=== PATIENT | female | born 1945 | race Caucasian/White ===

== ENCOUNTER 2019-07-02 19:17 | Emergency (ER) | payer MEDICARE, OTHER, SELFPAY ==
[~2019-07-02] VITALS: Ht 154.9 cm; Wt 54.5 kg
[2019-07-02] MEDS ORDERED: ADACEL/BOOSTRIX VACCINE (DIPHTH/PERTUSS/ACELL/TETANUS)0.5ML SYR (90715) IM ONE (20:00)
--- NOTE | 2019-07-02 20:35 | REPVR ---
PROCEDURE INFORMATION: Exam: CT Cervical Spine Without Contrast Exam date and time: 07/02/2019 7:29 PM Age: 74 years old Clinical history: Injury or trauma; Fall; Initial encounter; Blunt trauma TECHNIQUE: Imaging protocol: Computed tomography images of the cervical spine without contrast. Radiation optimization: All CT scans at this facility use at least one of these dose optimization techniques: automated exposure control; mA and/or kV adjustment per patient size (includes targeted exams where dose is matched to clinical indication); or iterative reconstruction. COMPARISON: No relevant prior studies available. FINDINGS: Vertebrae: No acute cervical spine fracture. The facet alignment is preserved bilaterally. The occipital condyles and C1-C2 articulations appear intact. The cervical lordosis is straightened. Mild anterolisthesis of C3 on C4. Mild retrolisthesis of the left C1 lateral mass on C2. There is slight anterolisthesis of the right C1 lateral mass on C2. Hypertrophic degenerative changes are identified at the junction of the anterior C1 arch and dens process. A small nonspecific sclerotic lesion is identified within the T2 spinous process. Discs/Spinal canal/Neural foramina: Spondylosis is visualized at multiple cervical levels. Facet arthropathy is identified at multiple cervical levels. Soft tissues: No significant prevertebral soft tissue swelling. Thyroid: There is a 9-10 mm nodule within the right thyroid lobe. Lungs: No pneumothorax, as visualized. Vasculature: Mild atherosclerotic changes. IMPRESSION: 1. No acute cervical spine fracture. 2. The cervical lordosis is straightened. 3. Mild anterolisthesis of C3 on C4. Mild retrolisthesis of the left C1 lateral mass on C2. There is slight anterolisthesis of the right C1 lateral mass on C2. 4. Spondylosis is visualized at multiple cervical levels. 5. There is a 9-10 mm nodule within the right thyroid lobe. COMMENT: In patients aged 35 years and older with an incidental thyroid nodule equal to or greater than 1.[address], MRI or extrathyroidal US, further evaluation with dedicated thyroid US is recommended for patients with normal life expectancy and without comorbidities. For smaller nodules without suspicious features, no further evaluation or follow up is recommended. Electronically signed by: Trung Todd On 07/02/2019 20:32:45 PM
--- NOTE | 2019-07-02 20:37 | REPVR ---
PROCEDURE INFORMATION: Exam: CT Head Without Contrast Exam date and time: 07/02/2019 7:29 PM Age: 74 years old Clinical history: Injury or trauma; Fall; Initial encounter; Concussion / head injury TECHNIQUE: Imaging protocol: Computed tomography of the head without contrast. Radiation optimization: All CT scans at this facility use at least one of these dose optimization techniques: automated exposure control; mA and/or kV adjustment per patient size (includes targeted exams where dose is matched to clinical indication); or iterative reconstruction. COMPARISON: No relevant prior studies available. FINDINGS: Brain: There is an increase in density along the posterior aspect of the falx, concerning for a small amount of subdural hemorrhage. This has a thickness of 2-3 mm. This can be contributed by volume averaging. Hypodense lacunar infarcts are identified within the bilateral basal ganglia, which appear to be subacute or chronic. There are scattered foci of white matter hypodensity, likely representing small vessel ischemic disease in a patient this age. The acuity of the white matter disease is indeterminate. The white-stevens differentiation is otherwise preserved demonstrating no acute territorial type infarct. Midline shift: There is no midline shift. Ventricles: There is mild prominence of the ventricles and sulci, compatible with atrophy. Bones/joints: The calvarium demonstrates no evidence for a depressed fracture. Sinuses: Visualized sinuses are unremarkable. No fluid levels. Mastoid air cells: No mastoid effusion. Soft tissues: Soft tissue swelling/hematoma of the right parietal scalp superiorly. Vasculature: Intracranial atherosclerosis visualized. IMPRESSION: 1. There is an increase in density along the posterior aspect of the falx, concerning for a small amount of subdural hemorrhage. A follow-up head CT in 12-24 hours is recommended. 2. Soft tissue swelling/hematoma of the right parietal scalp superiorly. 3. Hypodense lacunar infarcts are identified within the bilateral basal ganglia, which appear to be subacute or chronic. If there is a clinical concern for acute ischemic change, MRI is suggested. 4. There are scattered foci of white matter hypodensity, likely representing small vessel ischemic disease in a patient this age. 5. Mild atrophy. Electronically signed by: Trung Todd On 07/02/2019 20:37:20 PM
--- NOTE | 2019-07-03 02:40 | REPVR ---
PROCEDURE INFORMATION: Exam: CT Head Without Contrast Exam date and time: 07/03/2019 2:19 AM Age: 74 years old Clinical history: Pain; Headache; Additional info: [facility] TECHNIQUE: Imaging protocol: Computed tomography of the head without contrast. Radiation optimization: All CT scans at this facility use at least one of these dose optimization techniques: automated exposure control; mA and/or kV adjustment per patient size (includes targeted exams where dose is matched to clinical indication); or iterative reconstruction. COMPARISON: CT Head without contrast 07/02/2019 7:27 PM FINDINGS: Brain: There is no progression of the minimal posterior parafalcine hyperdensity/hemorrhage compared to the prior study. No new hemorrhage identified. Small subacute or chronic lacunar infarcts within the bilateral basal ganglia. There are scattered foci of white matter hypodensity, likely representing small vessel ischemic disease in a patient this age. The acuity of the white matter disease is indeterminate. The white-tsevens differentiation is preserved demonstrating no acute territorial type infarct. Midline shift: There is no midline shift. Ventricles: There is mild prominence of the ventricles and sulci, compatible with atrophy. Bones/joints: The calvarium demonstrates no evidence for a depressed fracture. Sinuses: Visualized sinuses are unremarkable. No fluid levels. Mastoid air cells: No mastoid effusion. Soft tissues: Soft tissue swelling/hematoma of the right parietal scalp superiorly. Vasculature: Intracranial atherosclerosis visualized. IMPRESSION: 1. There is no progression of the minimal posterior parafalcine hyperdensity/hemorrhage compared to the prior study. No new hemorrhage identified. 2. Soft tissue swelling/hematoma of the right parietal scalp superiorly. 3. Small subacute or chronic lacunar infarcts within the bilateral basal ganglia. 4. There are scattered foci of white matter hypodensity, likely representing small vessel ischemic disease in a patient this age. 5. Mild atrophy. Electronically signed by: Trung Todd On 07/03/2019 02:39:52 AM
[2019-07-03 06:10] VITALS: BP 141/67
== END 2019-07-03 06:15 | disposition left against medical advice (07) ==
LOC: M ED 19:17
DX: S01.01XA Laceration without foreign body of scalp, initial encounter (principal); S06.5X0A Traumatic subdural hemorrhage without loss of consciousness, initial encounter; W01.0XXA Fall on same level from slipping, tripping and stumbling without subsequent striking against object, initial encounter; E04.9 Nontoxic goiter, unspecified; G31.89 Other specified degenerative diseases of nervous system; M43.12 Spondylolisthesis, cervical region; M47.812 Spondylosis without myelopathy or radiculopathy, cervical region; F17.200 Nicotine dependence, unspecified, uncomplicated; F10.220 Alcohol dependence with intoxication, uncomplicated; Z53.29 Procedure and treatment not carried out because of patient's decision for other reasons
CPT/HCPCS: 70450; 72125; 90471; 90715; 99284; G0480

== ENCOUNTER 2022-04-21 20:15 | Emergency (ER) | payer MEDICARE, OTHER, MEDICAID, SELFPAY ==
[2022-04-21 20:51] LABS: BASO # 0.1 10^3/uL (0.0-0.2); BASO % 0.5 % (0.0-1.0); EOS # 0.1 10^3/uL (0.0-0.5); EOS % 1.4 % (0.0-3.0); HEMATOCRIT 34.8 % (36.0-47.0); HEMOGLOBIN 11.7 g/dl (12.0-15.5); LYMPH # 2.4 10^3/uL (1.5-5.0); LYMPH % 23.4 % (24.0-44.0); MEAN CORPUSCULAR HEMOGLOBIN 32.1 pg (27.0-33.0); MEAN CORPUSCULAR HGB CONC 33.6 g/dl (32.0-36.5); MEAN CORPUSCULAR VOLUME 95.6 fl (80.0-96.0); MONO # 1.3 10^3/uL (0.0-0.8); MONO % 12.4 % (2.0-8.0); NEUTROPHILS # 6.3 10^3/uL (1.5-8.5); NEUTROPHILS % 61.8 % (36.0-66.0); PLATELET COUNT, AUTOMATED 358 10^3/uL (150-450); RED BLOOD COUNT 3.64 10^6/uL (4.00-5.40); WHITE BLOOD COUNT 10.2 10^3/uL (4.0-10.0)
[2022-04-21 21:43] LABS: ALBUMIN 3.5 GM/DL (3.2-5.2); ALT/SGPT 18 U/L (12-78); BILIRUBIN,DIRECT < 0.1 MG/DL (0.0-0.2); BILIRUBIN,TOTAL 0.4 MG/DL (0.2-1.0); BLOOD UREA NITROGEN 13 MG/DL (7-18); CALCIUM LEVEL 8.4 MG/DL (8.8-10.2); CARBON DIOXIDE LEVEL 19 MEQ/L (21-32); CHLORIDE LEVEL 99 MEQ/L (98-107); CREATININE FOR GFR 0.71 MG/DL (0.55-1.30); GLOMERULAR FILTRATION RATE > 60.0 (>39); GLUCOSE, FASTING 97 MG/DL (70-100); POTASSIUM SERUM 4.3 MEQ/L (3.5-5.1); SODIUM LEVEL 129 MEQ/L (136-145); TOTAL PROTEIN 7.2 GM/DL (6.4-8.2)
[2022-04-21 22:14] LABS: ETHYL ALCOHOL (ETHANOL) 0.341 % (0.000-0.010)
[2022-04-21 22:56] VITALS: BP 165/82
== END 2022-04-21 23:58 | disposition home or self-care (01) ==
LOC: M ED 20:15 → EDBD 20:15 → M ED 23:58
DX: S00.03XA Contusion of scalp, initial encounter (principal); W08.XXXA Fall from other furniture, initial encounter; F10.120 Alcohol abuse with intoxication, uncomplicated; M47.812 Spondylosis without myelopathy or radiculopathy, cervical region; E87.1 Hypo-osmolality and hyponatremia